=== PATIENT | male | born 1990 | race African-American/Black ===

== ENCOUNTER 2019-08-07 18:52 | Emergency (ER) | payer MEDICARE, MEDICAID ==
[~2019-08-07] VITALS: Ht 182.9 cm; Wt 86.4 kg
[2019-08-07 20:17] LABS: BASOPHILS % (AUTO) 0.2 % (0.0-2.0); EOSINOPHILS % (AUTO) 0.3 % (1.0-6.0); HEMATOCRIT 43.6 % (41-53); HEMOGLOBIN 14.7 g/dL (13.5-17.5); LYMPHOCYTES % (AUTO) 31.9 % (22.0-44.0); MEAN CORPUSCULAR HEMOGLOBIN 34.1 pg (26.0-34.0); MEAN CORPUSCULAR HGB CONC 33.7 G/dL (31.0-37.0); MEAN CORPUSCULAR VOLUME 101 fL (80-100); MONOCYTES # (AUTO) 0.4 K/uL (0.1-1.0); MONOCYTES % (AUTO) 6.4 % (2.0-9.0); NEUTROPHILS # (AUTO) 3.8 K/uL (1.8-7.7); NEUTROPHILS % (AUTO) 61.2 % (40.0-70.0); PLATELET COUNT (AUTO) 343 K/uL (150-450); RED BLOOD CELL COUNT(AUTO) 4.31 MIL/uL (4.50-5.90); RED CELL DISTRIBUTION WIDTH 15.3 % (11.5-14.5)
[2019-08-07 20:33] LABS: ANION GAP 17 mmol/L (8-16); CALCIUM, TOTAL 7.8 mg/dL (8.8-10.5); CARBON DIOXIDE 26 mmol/L (22-29); CHLORIDE 105 mmol/L (98-107); CREATININE 0.99 mg/dL (0.60-1.30); GLOMERULAR FILTR. RATE CALC > 60 mL/min (>60); GLUCOSE,RANDOM 112 mg/dL (70-110); POTASSIUM 3.6 mmol/L (3.5-5.1); SODIUM SERUM 148 mmol/L (136-145); UREA NITROGEN, BLOOD 12 mg/dL (7-18)
[2019-08-07 20:36] LABS: ALANINE AMINOTRANSFERASE 38 U/L (12-78); ALBUMIN 3.9 g/dL (3.4-5.0); ALKALINE PHOSPHATASE 86 U/L (46-116); ASPARTATE AMINOTRANSFERASE 35 U/L (15-37); BILIRUBIN,TOTAL 0.3 mg/dL (0.1-1.0); TOTAL PROTEIN, SERUM 8.1 g/dL (6.4-8.2)
[2019-08-07] MEDS ORDERED: SODIUM CHLORIDE 0.9% 1,000 ML IV ONE (20:45)
[2019-08-07 21:47] LABS: AMPHET/METH SCREEN,URINE NEGATIVE (NEGATIVE); BARBITURATE SCREEN, URINE NEGATIVE (NEGATIVE); BENZODIAZEPINES SCREEN,URINE NEGATIVE (NEGATIVE); CANNABINOID SCREEN,URINE NEGATIVE (NEGATIVE); COCAINE SCREEN,URINE NEGATIVE (NEGATIVE); METHADONE SCREEN, URINE NEGATIVE (NEGATIVE); OPIATE SCREEN,URINE NEGATIVE (NEGATIVE)
[2019-08-07 21:49] LABS: PHENCYCLIDINE SCREEN,URINE NEGATIVE (NEGATIVE)
[2019-08-08 03:53] VITALS: BP 119/68
== END 2019-08-08 04:00 | disposition home or self-care (01) ==
LOC: EMS 18:53
DX: F10.129 Alcohol abuse with intoxication, unspecified (principal); Y90.8 Blood alcohol level of 240 mg/100 ml or more
CPT/HCPCS: 36415; 80053; 80307; 85025; 99283; G0480

== ENCOUNTER 2020-02-12 20:59 | Emergency (ER) | payer MEDICAID, MEDICARE ==
[~2020-02-12] VITALS: Ht 182.9 cm; Wt 86.4 kg
[2020-02-12 21:06] VITALS: BP 139/89
== END 2020-02-12 21:24 | disposition home or self-care (01) ==
LOC: EMS 20:59
DX: F10.129 Alcohol abuse with intoxication, unspecified (principal); Y04.2XXA Assault by strike against or bumped into by another person, initial encounter; Y93.89 Activity, other specified; Y92.89 Other specified places as the place of occurrence of the external cause; Y99.8 Other external cause status